=== PATIENT | female | born 1965 | race Two or more races ===

== ENCOUNTER 2016-07-10 16:44 | Emergency (ER) | payer SELFPAY ==
--- NOTE | ~2016-07-10 | EKG ---
PATIENT: NIVIA SILVA UNIT #: [id number] Ventricular Rate: 86 BPM Atrial Rate: 86 BPM P-R Interval: 154 ms QRS Duration: 84 ms Q-T Interval: 400 ms QTC Calculation(Bezet): 478 ms P [place]: 49 degrees Calculated R [place]: -4 degrees Calculated T [place]: 50 degrees Diagnosis Line: Normal sinus rhythm Diagnosis Line: Possible Anterior infarct , age undetermined Diagnosis Line: Abnormal ECG Diagnosis Line: When compared with ECG of 17-JUL-2015 02:02, Diagnosis Line: No significant change was found Diagnosis Line: Confirmed by BENJAMIN PARRY MD ([id number]) on Diagnosis Line: 07/11/2016 3:45:59 PM INTERPRETING MD: BRINDA RYAN
[~2016-07-10 16:44] MED LIST: ACCUCHECK MACHINE; ASPIRIN81 M2 PO; BUMEX1 MG PO; FLEXERIL10 MG PO; HUMALOG100 U/M2 SUBQ; HUMALOG100 U/ML SUBQ; LANTUS100 U/ML SUBQ; LIPITOR PO; POTASSIUM CHLO10 ME1 PO; PREDNISONE10 MG PO; PROAIR HFA8.5 GM INH; VOLTAREN75 MG PO; ZESTRIL2.5 MG PO; ZITHROMAX PO; [UNRECOGNIZED DRUG - SUPPLY]
[2016-07-10 18:48] LABS: BASOPHIL# 0.1 X10e3 (0-0.3); BASOPHIL% 0.9 % (0-2.5); EOSINOPHIL# 0.1 X10e3 (0-0.7); EOSINOPHIL% 0.9 % (0.0-7.0); HEMATOCRIT 41.7 % (35.0-45.0); HEMOGLOBIN 13.8 gm/dL (12.0-16.0); LYMPHOCYTE# 1.7 X10e3 (1.0-3.5); LYMPHOCYTE% 17.7 % (17.0-45.0); MEAN CELL VOLUME 85.3 FL (83-96); MEAN CORPUSCULAR HEMOGLOBIN 28.2 PG (28-34); MEAN CORPUSCULAR HGB CONC 33.1 g/dL (30-36); MONOCYTE# 0.5 X10e3 (0-1.0); NEUTROPHIL# 7.1 X10e3 (1.5-7.1); NEUTROPHIL% 75.5 % (40-75); PLATELET COUNT 315 X10e3 (140-420); RED CELL DISTRIBUTION WIDTH 13.1 % (11.0-15.5); WHITE BLOOD COUNT 9.5 X10e3 (4.0-10.5)
[2016-07-10 19:03] LABS: DIFF IND NO
[2016-07-10 19:06] LABS: ALBUMIN SERUM 4.3 g/dL (3.5-5.0); ALKALINE PHOSPHATASE 57 U/L (32-92); ALT (SGPT) 18 U/L (10-40); AST (SGOT) 19 U/L (10-42); BILIRUBIN,TOTAL 0.5 mg/dL (0.2-2.0); BLOOD UREA NITROGEN 13 mg/dL (9-23); BUN/CREATININE RATIO 21.66; CALCIUM SERUM 9.8 mg/dL (8.4-10.2); CARBON DIOXIDE 27 mmol/L (22-31); CHLORIDE 100 mmol/L (100-111); CREATININE SERUM 0.6 mg/dL (0.6-1.4); GLOM FILT RATE Estimated 104.8 mL/min (>60); GLUCOSE FASTING 225 mg/dL (70-110); POTASSIUM 3.9 mmol/L (3.5-5.1); PROTEIN TOTAL SERUM 7.7 g/dL (6.0-8.3); SODIUM 136 mmol/L (135-145)
[2016-07-10 19:07] LABS: BILIRUBIN, DIRECT <0.1 mg/dL (0.0-0.2); BILIRUBIN,INDIRECT 0.4 mg/dL (0.0-0.9)
[2016-07-10 19:35] LABS: URINE SOURCE CLEAN CATCH
[2016-07-10 19:42] LABS: URINE APPEARANCE CLOUDY; URINE BILIRUBIN NEG (NEG); URINE BLOOD NEG (NEG); URINE COLOR YELLOW; URINE GLUCOSE 100 MG/DL (NEG); URINE KETONE NEG (NEG); URINE LEUKOCYTE ESTERASE 3+ (NEG); URINE NITRATE NEG (NEG); URINE PROTEIN NEG (NEG); URINE SPECIFIC GRAVITY 1.016 (1.003-1.035)
[2016-07-10 19:48] LABS: CULTURE INDICATED? YES; U HYALINE CASTS AUWI 0-2 /[LPF]; URINE BACTERIA AUWI 2+ (NEGATIVE); URINE SQUAMOUS EPITHELIAL CELL MOD /[HPF]; UWBCS1 AUWI 50-100 (0-5)
== END 2016-07-10 20:19 | disposition home or self-care (01) ==
LOC: CED 16:44
PROVIDERS: Emergency Medicine
DX: H81.02 Meniere's disease, left ear (principal); H93.12 Tinnitus, left ear; N39.0 Urinary tract infection, site not specified; E78.5 Hyperlipidemia, unspecified; E11.9 Type 2 diabetes mellitus without complications; I10 Essential (primary) hypertension; Z79.899 Other long term (current) drug therapy
CPT/HCPCS: 36415; 80048; 80076; 81003; 82947; 84703; 85025; 87086; 93005; 99283

== ENCOUNTER 2016-11-01 06:08 | Emergency (ER) | payer OTHER ==
[~2016-11-01] VITALS: Ht 157.5 cm; Wt 81.6 kg
--- NOTE | ~2016-11-01 | CT4 ---
[facility] A Service of [facility] RADIOLOGY TEXT RESULTS PATIENT: NIVIA SILVA LOCATION: [facility] : 63 UNIT #: [id number] AGE: [address]: Magali Sellers SEX: F ORDER DR: [id number] [facility] [address] [place], [place] [address] [id number] MR#: [id number] Acc #: [id number] NAME: NIVIA SILVA : 1965 SEX: F STUDY DATE/TIME: 11/01/2016 10:05 UNIT: [facility] ROOM: STUDY DESCRIPTION: CT Abd and Pelv Wo Cont Attending Physician: Magali Sellers Pa-C Ordering Physician: Magali Sellers Pa-C Primary Care Physician: [facility], [place] IMAGING REPORT This report is preliminary unless electronic signature is present EXAM CT abdomen and pelvis without contrast HISTORY Dysuria, abdominal and flank pain, urinary frequency since this morning. Previous appendectomy. COMPARISON 08/04/2010 TECHNIQUE Axial 3 mm images were obtained through the abdomen and pelvis without IV or oral contrast. Sagittal and coronal reconstructions were generated. This CT exam was performed with one or more of the following radiation dose reduction techniques: automatic exposure control, adjustment of mA and/or kV according to patient size, and iterative reconstruction. FINDINGS Lung bases are clear. The liver, spleen and adrenal glands are normal. 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 There are no surgical changes present. The kidneys appear normal. The gallbladder has a 12 mm calcified stone within it. There is actually some focal cortical atrophy in the left kidney. The aorta is normal in size and there is no adenopathy. The bowel is normal. The umbilical hernia containing fat only is stable. There is a right ovarian mass. The right ovary is enlarged. It is difficult to tell if this is due to cyst formation. It is 5.5 x 5.5 cm and the ovarian tissue measures 20 Hounsfield units. The uterus and left ovary appear normal. The bladder is normal. The bones are unremarkable. The right ovary is about 3.7 cm on the prior study. IMPRESSION 1. The right ovary is enlarged as compared with the prior study from [facility] A Service of [facility] RADIOLOGY TEXT RESULTS PATIENT: NIVIA [id number] : 63 UNIT #: [id number] AGE: [address]: Magali Sellers SEX: F ORDER DR: 2010; it now measures about 5.5 cm in diameter and is low in density. On this unenhanced study, it is difficult to tell if this is due to cyst formation. At the patient's age of 51, this probably needs additional follow up and a pelvic ultrasound should be consider to evaluate the ovary. On an old study in 2010, the right ovary was about 3.7 cm in diameter. 2. There is a 12 mm gallstone. 3. Otherwise, the study is negative. There is a stable fatty umbilical hernia. Dictated by... Mikhail Coffey M.D. THIS IS AN ELECTRONICALLY VERIFIED REPORT Mikhail Coffey M.D. at 11/02/2016 10:03 AM FEL/anshul TD: 11/01/2016 20:17 JOB #: [id number] MEDICAL IMAGING REPORT Page 1 of 1 COPY
[2016-11-01 07:49] LABS: URINE SOURCE CLEAN CATCH
[2016-11-01 08:01] LABS: URINE APPEARANCE TURBID; URINE BILIRUBIN NEG (NEG); URINE BLOOD 3+ (NEG); URINE COLOR ORANGE; URINE GLUCOSE >1000 MG/DL (NEG); URINE KETONE 2+ (NEG); URINE LEUKOCYTE ESTERASE 2+ (NEG); URINE NITRATE NEG (NEG); URINE PROTEIN 2+ (NEG); URINE SPECIFIC GRAVITY 1.035 (1.003-1.035); URINE UROBILINOGEN 0.2 MG/DL (NEG)
[2016-11-01 08:07] LABS: CULTURE INDICATED? YES; U HYALINE CASTS AUWI 0-2 /[LPF]; URBCS1 AUWI INNUM /[HPF] (0-2); URINE BACTERIA AUWI 2+ (NEGATIVE); URINE SQUAMOUS EPITHELIAL CELL OCC /[HPF]; UWBCS1 AUWI INNUM (0-5)
[2016-11-01 08:11] LABS: BASOPHIL# 0.1 X10e3 (0-0.3); BASOPHIL% 0.7 % (0-2.5); EOSINOPHIL# 0.1 X10e3 (0-0.7); EOSINOPHIL% 0.5 % (0.0-7.0); HEMOGLOBIN 14.5 gm/dL (12.0-16.0); LYMPHOCYTE# 1.8 X10e3 (1.0-3.5); LYMPHOCYTE% 12.2 % (17.0-45.0); MEAN CELL VOLUME 84.2 FL (83-96); MEAN CORPUSCULAR HGB CONC 34.5 g/dL (30-36); MEAN PLATELET VOLUME 9.3 FL (6.5-11.5); MONOCYTE# 0.8 X10e3 (0-1.0); MONOCYTE% 5.4 % (3.0-12.0); NEUTROPHIL# 12.2 X10e3 (1.5-7.1); NEUTROPHIL% 81.2 % (40-75); PLATELET COUNT 269 X10e3 (140-420); RED BLOOD COUNT 4.99 X10e (3.90-5.30); RED CELL DISTRIBUTION WIDTH 13.1 % (11.0-15.5)
[2016-11-01 08:12] LABS: DIFF IND NO
[2016-11-01 08:31] LABS: ALBUMIN SERUM 4.3 g/dL (3.5-5.0); BILIRUBIN,TOTAL 0.8 mg/dL (0.2-2.0); CALCIUM SERUM 9.2 mg/dL (8.4-10.2); CREATININE SERUM 0.5 mg/dL (0.6-1.4); GLOM FILT RATE Estimated 111.3 mL/min (>60); POTASSIUM 3.8 mmol/L (3.5-5.1); PROTEIN TOTAL SERUM 7.9 g/dL (6.0-8.3)
== END 2016-11-01 11:27 | disposition home or self-care (01) ==
LOC: CED 06:08
PROVIDERS: Physician Assistant Medical
DX: N30.90 Cystitis, unspecified without hematuria (principal); R19.00 Intra-abdominal and pelvic swelling, mass and lump, unspecified site; E11.9 Type 2 diabetes mellitus without complications; E78.00 Pure hypercholesterolemia, unspecified; I11.0 Hypertensive heart disease with heart failure; I50.9 Heart failure, unspecified; Z79.899 Other long term (current) drug therapy
CPT/HCPCS: 36415; 74176; 80053; 81003; 85025; 87086; 87088; 87186; 96361; 96365; 99284; J0696